=== PATIENT | female | born 1990 | race Hispanic/Latino ===

== ENCOUNTER 2018-08-21 13:36 | Outpatient (CLI) | payer BC ==
--- NOTE | 2018-08-21 15:42 | ULT ---
TRANSVAGINAL PELVIC ULTRASOUND: HISTORY: High-risk fetus, first trimester. COMPARISON: None. TECHNIQUE: Real-time clements-scale and color evaluation of the gravid uterus is performed, transabdominal and trans vaginal approach. FINDINGS: The uterus measures 7.7 x 5.3 x 5.4 cm. Within the uterine fundus is a gestational sac with a pole. No yolk sac is appreciated. Mean gestational sac diameter is 2 cm. [place]-rump length measures 0.3 cm. The exam is limited due to habitus. No heart tones are yet appreciated. IMPRESSION: Findings suspicious for, although not diagnostic of, failure. Close follow-up hCG and ultr asound are recommended. There is an intrauterine gestational sac and a pole with no demonstrab le heart rate. POS: [facility]
== END 2018-08-21 13:37 | disposition home or self-care (01) ==
LOC: ULT 13:36
PROVIDERS: ATTEND Nurse Practitioner
DX: O09.91 Supervision of high risk pregnancy, unspecified, first trimester (principal)
CPT/HCPCS: 76856

== ENCOUNTER 2018-08-21 18:44 | Emergency (ER) | payer BC ==
[2018-08-21 19:10] LABS: Bilirubin Negative (Negative); Blood, Urine Large (Negative); Clarity CLEAR (Clear); Glucose, Urine (Dipstick) Negative (Negative); Leukocyte Trace (Negative); Nitrite Negative (Negative); Protein, Urine (Dipstick) Negative (Neg-Trace); Urobilinogen 0.2 mg/dL (0.2-1.0); pH, Urine 6.5 (5.0-9.0)
[2018-08-21 19:12] LABS: Bacteria/HPF None Seen HPF (None Seen); Hyaline Casts/LPF 0-3 HYALINE CAST LPF (0-3 Hyaline); Pathc Cast-AUWi Flag 1.01 (0-2.49); RBC/HPF GREATER THAN 50-TNTC HPF (0-3); Squamous Epithelial 0-3 HPF (0-3); WBC/HPF 0-3 HPF (0-3)
[2018-08-21 19:26] LABS: #Basophils 0.1 thou/uL (0.0-0.2); #Eosinphils 0.3 thou/uL (0.0-0.7); #Lymphocytes 4.8 thou/uL (1.20-3.40); #Monocytes 0.7 thou/uL (0.11-0.59); #Neutrophils 7.2 thou/uL (1.40-6.50); %Basophils 0.4 % (0.0-1.0); %Eosinophils 2.1 % (0.0-10.0); %Monocytes 5.4 % (0.0-10.0); %Neutrophils 55.1 % (42.0-75.0); Hemoglobin 13.5 g/dL (12.0-16.0); Mean Corpuscular Hemoglobin 27.2 pg (27.0-31.0); Mean Corpuscular Volume 82.6 fL (78.0-98.0); Platelet Count 286 thou/uL (130-400); RBC Distribution Width 13.1 % (11.5-14.5); Red Blood Cell (RBC) Count 4.94 mill/uL (4.20-5.40)
== END 2018-08-21 22:00 | disposition home or self-care (01) ==
LOC: ERS 18:44
DX: O20.0 Threatened abortion (principal); O24.911 Unspecified diabetes mellitus in pregnancy, first trimester; Z3A.01 Less than 8 weeks gestation of pregnancy
CPT/HCPCS: 36415; 76856; 81003; 81015; 84702; 85025; 86900; 86901; 99284

== ENCOUNTER 2018-08-25 20:21 | Emergency (ER) | payer BC ==
[2018-08-25 21:09] LABS: #Basophils 0.1 thou/uL (0.0-0.2); #Eosinphils 0.3 thou/uL (0.0-0.7); #Lymphocytes 4.7 thou/uL (1.20-3.40); #Monocytes 0.7 thou/uL (0.11-0.59); %Basophils 0.8 % (0.0-1.0); %Eosinophils 2.2 % (0.0-10.0); %Monocytes 4.9 % (0.0-10.0); Hemoglobin 13.3 g/dL (12.0-16.0); Mean Corpuscular HGB CONC 32.8 g/dL (32.0-36.0); Mean Corpuscular Hemoglobin 27.1 pg (27.0-31.0); Mean Corpuscular Volume 82.5 fL (78.0-98.0); Mean Platelet Volume 8.2 fL (7.4-10.4); Platelet Count 274 thou/uL (130-400); RBC Distribution Width 12.9 % (11.5-14.5); Red Blood Cell (RBC) Count 4.92 mill/uL (4.20-5.40); White Blood Cell (WBC) Count 13.7 thou/uL (4.8-10.8)
--- NOTE | 2018-08-25 22:34 | ULT ---
PELVIC ULTRASOUND: HISTORY: and vaginal bleeding. TECHNIQUE: Multiple longitudinal and transverse images of the pelvis are obtained using a Multi-Hertz endovagina l transducer. FINDINGS: Real-time and color-flow images demonstrate an area of hypoechogenicity seen within the uterine cavit y. This may represent a gestational sac. No pole or yolk sac seen. No evidence of cardiac ac tivity detected. No other significant uterine abnormalities noted. The uterus measures 12 x 5 x 5.1 cm. The right ovary is not visualized. The left ovary measures 2.6 x 1.5 x 2.7 cm. No evidence of free pelvic fluid is seen. IMPRESSION: Area of hypoechogenicity within the uterine cavity. This may represent a gestational sac. POS: [facility]
== END 2018-08-25 22:37 | disposition home or self-care (01) ==
LOC: ERS 20:21
DX: O20.0 Threatened abortion (principal); Z3A.09 9 weeks gestation of pregnancy; O24.111 Pre-existing type 2 diabetes mellitus, in pregnancy, first trimester; E11.9 Type 2 diabetes mellitus without complications
CPT/HCPCS: 36415; 76856; 84702; 85025; 86900; 86901

== ENCOUNTER 2020-09-13 13:21 | Outpatient (CLI) | payer OTHER | END 2020-09-13 13:22 | disposition home or self-care (01) | LOC: BICULT 13:21 | PROVIDERS: ATTEND Nurse Practitioner | DX: O09.92 Supervision of high risk pregnancy, unspecified, second trimester (principal); Z3A.26 26 weeks gestation of pregnancy | CPT/HCPCS: 76805 ==

== ENCOUNTER 2020-10-18 13:28 | Outpatient (CLI) | payer OTHER | END 2020-10-18 13:29 | disposition home or self-care (01) | LOC: BICULT 13:28 | PROVIDERS: ATTEND Family Medicine | DX: O09.93 Supervision of high risk pregnancy, unspecified, third trimester (principal); Z3A.33 33 weeks gestation of pregnancy | CPT/HCPCS: 76805 ==